=== PATIENT | male | born 1960 | race Caucasian/White ===

== ENCOUNTER → 2023-08-10 07:37 | Outpatient (REF) | payer OTHER, SELFPAY | LOC: MRI 3T 07:37 | PROVIDERS: ATTENDING PHYSICIAN Physician Assistant Surgical; FAMILY PHYSICIAN Physician Assistant Medical | DX: M54.16 Radiculopathy, lumbar region (principal); M54.50 Low back pain, unspecified | CPT/HCPCS: 72148 ==

== ENCOUNTER → 2024-06-11 08:37 | Outpatient (REF) | payer OTHER, SELFPAY | LOC: HWRAD 08:37 | PROVIDERS: ATTENDING PHYSICIAN Physician Assistant Medical | DX: Z87.891 Personal history of nicotine dependence (principal) | CPT/HCPCS: 71271 ==

== ENCOUNTER 2025-06-06 06:25 | Day surgery (SDC) | payer OTHER, SELFPAY ==
[2025-05-23 12:41] VITALS: BMI 26.9
== END 2025-06-06 23:59 | disposition home or self-care (01) ==
LOC: SDS 06:25
PROVIDERS: ATTENDING PHYSICIAN Surgery; FAMILY PHYSICIAN Physician Assistant Medical; OTHER PHYSICIAN Internal Medicine
DX: K40.20 Bilateral inguinal hernia, without obstruction or gangrene, not specified as recurrent (principal); Z53.9 Procedure and treatment not carried out, unspecified reason
CPT/HCPCS: 49650; 36415; 93005

== ENCOUNTER 2025-06-06 21:11 | Observation (INO) | payer OTHER, SELFPAY ==
[2025-06-06 09:58] VITALS: BP 111/62
--- NOTE | 2025-06-06 10:48 | ED.GENMED ---
History of Present Illness
<Rahul Peterson, DO - Last Filed: 06/06/25 14:10>
General
Chief Complaint: Abdominal Pain
Source: patient and spouse
Exam Limitations: none
Time Seen by Provider: 06/06/25 10:27
Nursing documentation reviewed up to this point in time: agreed with
History of Present Illness
History of Present Illness:
Note:
CHIEF COMPLAINT(S)
Intense pain not associated with the scheduled hernia surgery.
HISTORY OF PRESENT ILLNESS
The patient is a 65-year-old male with a history of an inguinal hernia for a year and a half, which was due for surgical repair today. The surgery was postponed due to issues with the air conditioning in the operating room. While waiting for
surgery, the patient began experiencing intense pain. The pains location is not associated with the hernia site and is notably different from any previous symptoms he had with the hernia. The patient describes the pain as 'intense' but not to the
point of screaming.
PAST MEDICAL AND SURGICAL HISTORY
The patient had surgery many years ago involving a section of the colon and diverticulitis.
ADDITIONAL HISTORY OBTAINED FROM SOURCES OTHER THAN THE PATIENT
The patients family member mentioned that they were waiting in the prep room for the surgery when the pain started.
PHYSICAL EXAM
General: Alert, no acute distress.
Skin: Warm, dry.
Head: Normocephalic, atraumatic.
Neck: Supple, trachea midline.
Eye Ears, nose, mouth and throat: Oral mucosa moist.
Cardiovascular: Normal peripheral perfusion, No edema.
Respiratory: Respirations are non-labored.
Gastrointestinal: Abdomen nondistended, tenderness noted but not significantly aggravated by palpation.
Back: Normal range of motion, Normal alignment.
Musculoskeletal: Normal range of motion, normal strength.
Neurological: Alert and oriented to person, place, time, and situation, No focal neurological deficit observed.
Psychiatric: Cooperative, appropriate mood & affect.
PROBLEM LIST
Acute: Intense, unexplained abdominal pain.
Chronic: Inguinal hernia.
PLAN
1. Postpone the hernia surgery until the current pain is evaluated and addressed.
2. Evaluate for potential kidney stones as a cause of abdominal pain.
3. Initiate a urinalysis by collecting a urine sample.
4. Place an intravenous line for potential medication administration and further diagnostics.
DIFFERENTIAL DIAGNOSIS
The differential diagnosis includes, in no particular order and is not limited to:
1. Renal colic/kidney stones
2. Abdominal aortic aneurysm
3. Appendicitis
4. Diverticulitis
5. Intestinal obstruction
6. Mesenteric ischemia
7. Gastroenteritis
8. Pancreatitis
9. Biliary colic
10. Gastroesophageal reflux disease
CARE-UPDATE
06/06/25 - 14:09
The patient has a left ureteral calculus measuring 0.5 centimeters in the proximal ureter. It is currently obstructing but there are no signs of infection. A consultation with Dr. Humphrey is planned to evaluate the need for surgical intervention
versus discharge.
Phy Exam
<Valdez Sandy MD - Last Filed: 06/07/25 13:20>
Physical Exam
Physical Exam:
*
Course
<Rahul Peterson DO - Last Filed: 06/06/25 14:10>
Orders/Labs/Results
Orders:
Orders
06/06/25 10:46
CT Abd/Pel (IV only)-DH only Urgent
Comment:
Reason For Exam: LLQ abd pain
IV Insert/Care/Rem.- Treatment PRN
0.9% Sodium Chloride 1000 ml [Nss] 1,000 ml IV BOLUS
Morphine Sulfate 4 mg IV NOW STA
Ondansetron Injectable [Zofran] 4 mg IV NOW STA
06/06/25 11:06
Complete Blood Count/With Diff Urgent
Comprehensive Metabolic Panel Urgent
06/06/25 11:37
Ketorolac [Toradol] 15 mg IV NOW STA
06/06/25 13:10
Urinalysis Reflex To Culture Urgent
Date Specimen was Collected: 06/06/25
Time Specimen was Collected: 13:00
Urine Microscopic Reflex Cult Urgent
06/06/25 13:29
Ketorolac [Toradol] 15 mg IV NOW STA
06/06/25 14:14
HYDROmorphone [Dilaudid] 1 mg .ROUTE .STK-MED ONE
06/06/25 14:15
HYDROmorphone [Dilaudid] 1 mg IV NOW STA
06/06/25 Dinner
2000 calorie (17 carb) Diabetic
At Your Request: Full Participation
06/06/25 16:03
Admit Patient As Directed
Co-Sign Provider:
Level of Care: Observation services
Assign to:: Medical/Surgical
Physician / Group: [facility]
Diagnosis: left ureteral stone
Expected length of stay greater than two midnights?: No
Other Reason for Overnight Stay: awaiting surgery
Code Status As Directed
Resuscitation Status: Full Code
Acetaminophen [Tylenol] 650 mg PO Q4HPRN PRN
Dextrose 50%-Water [Dextrose 50% Syringe] 12.5 grams IV [id number] PRN
Glucagon [GlucaGen] 1 mg IM PRN PRN
Morphine Sulfate 4 mg IV Q1HPRN PRN
Oxycodone/Acetaminophen [Percocet 5/325] 1 tablet PO Q4HPRN PRN
Oxycodone/Acetaminophen [Percocet 5/325] 2 tablet PO Q4HPRN PRN
Activity As Directed
Activity Level: As Tolerated
Bedside Glucose Monitoring As Directed
Frequency: AC&HS
Additional Instructions:: Change to q6h if pt on TPN, tube feeding or not eating
Intake/ Output As Directed
Frequency: Per unit guidelines
Okay to Shower As Directed
Vital Signs As Directed
Frequency: Per unit guidelines
06/06/25 16:04
DX Deep Vein Thrombosis Video Routine
06/06/25 16:05
PRN Pain Medication Management As Directed
May give lesser potent ordered pain med per pt: Yes
preference::
Protocol:: Medication orders for pain may be administered in a
manner that supports deferring to patient preference
when the pt is:
- Requesting an ordered lesser potent pain medication.
Least to most potent pain medications are defined
as: acetaminophen < NSAID < tramadol < opioids
(morphine, oxycodone, hydromorphone).
- Requesting a lesser dose of the same medication IF
ORDERED.
- Requesting a less intrusive route of administration
if both routes are prescribed by the provider (PO <
IV).
06/06/25 16:08
Ketorolac [Toradol] 15 mg IV Q6HPRN PRN
06/06/25 16:30
Insulin Aspart Corrective Low [Novolog Flexpen-Low Resistance] See Protocol SC AC
06/06/25 18:00
Aspirin Low Dose EC [Aspir Low (Enteric Coated)] 81 mg PO QPM
Atorvastatin [Lipitor] 80 mg PO QPM
06/06/25 20:00
Bupropion(12Hr)Sustain Release [WELLBUTRIN SR (12 hour sustained release)] 150 mg PO BID
METFORMIN HCl [Glucophage] 500 mg PO BID
06/06/25 22:00
Tamsulosin [Flomax] 0.4 mg PO HS
06/07/25 05:46
Basic Metabolic Panel IN AM
Complete Blood Count/No Diff IN AM
Glycohemoglobin (HgbA1c) IN AM
06/07/25 08:00
Lisinopril [Zestril] 5 mg PO DAILY
METFORMIN HCl [Glucophage] 500 mg PO BID@0800,1700
Sertraline HCl [Zoloft] 50 mg PO DAILY
06/07/25 10:00
CeFAZolin 2 GRAM [Ancef] 2 grams in 10 ml IV PRE PROCEDURE
Pneumatic Compression Sleeves As Directed
Type: Thigh high
Surgical Procedure As Directed
Surgical Procedure: left ureteroscopy
Abnormal Lab Results
06/06/25 06/06/25 06/06/25
11:06 13:10 16:44
WBC 15.9 H 10^3/uL
(4.8-10.8)
Abs Immat Gran (auto) 0.1 H 10^3/uL
(0-0.05)
Absolute Neuts (auto) 13.4 H 10^3/uL
(1.4-6.5)
Absolute Monos (auto) 1.0 H 10^3/uL
(0.1-0.6)
Neutrophils % 84.5 H %
(42.2-75.2)
Lymphocytes % 8.6 L %
(20.5-51.1)
Sodium 132 L mmol/L
(135-145)
Carbon Dioxide 20 L mmol/L
(22-30)
BUN 31 H mg/dl
(9-20)
Glucose 173 H mg/dl
(70-99)
Ur Occult Blood Reflex 4+ A
(Negative)
Urine RBC 26-30 A /HPF
(0-2)
Urine Bacteria (Reflex) Few A
(Negative)
Urine Glucose 3+ A
(Negative)
Urine Albumin (Reflex) 2+ A
(Neg - Trace)
POC Glucose 133 H mg/dl
(70-99)
06/06/25 11:06
06/06/25 11:06
Vital Signs
Initial and Last Documented VS:
Initial Vital Signs
Temp Pulse Resp BP Pulse Ox
97.6 F 55 18 111/62 100
06/06/25 09:58 06/06/25 09:58 06/06/25 09:58 06/06/25 09:58 06/06/25 09:58
Last Documented Vital Signs
Temp Pulse Resp BP Pulse Ox
97.8 F 76 16 112/80 98
06/07/25 12:45 06/07/25 12:45 06/07/25 12:45 06/07/25 12:45 06/07/25 12:45
<Valdez Sandy MD - Last Filed: 06/07/25 13:20>
Orders/Labs/Results
Orders:
Orders
06/06/25 10:46
CT Abd/Pel (IV only)-DH only Urgent
Comment:
Reason For Exam: LLQ abd pain
IV Insert/Care/Rem.- Treatment PRN
0.9% Sodium Chloride 1000 ml [Nss] 1,000 ml IV BOLUS
Morphine Sulfate 4 mg IV NOW STA
Ondansetron Injectable [Zofran] 4 mg IV NOW STA
06/06/25 11:06
Complete Blood Count/With Diff Urgent
Comprehensive Metabolic Panel Urgent
06/06/25 11:37
Ketorolac [Toradol] 15 mg IV NOW STA
06/06/25 13:10
Urinalysis Reflex To Culture Urgent
Date Specimen was Collected: 06/06/25
Time Specimen was Collected: 13:00
Urine Microscopic Reflex Cult Urgent
06/06/25 13:29
Ketorolac [Toradol] 15 mg IV NOW STA
06/06/25 14:14
HYDROmorphone [Dilaudid] 1 mg .ROUTE .STK-MED ONE
06/06/25 14:15
HYDROmorphone [Dilaudid] 1 mg IV NOW STA
06/06/25 Dinner
2000 calorie (17 carb) Diabetic
At Your Request: Full Participation
06/06/25 16:03
Admit Patient As Directed
Co-Sign Provider:
Level of Care: Observation services
Assign to:: Medical/Surgical
[facility]
Diagnosis: left ureteral stone
Expected length of stay greater than two midnights?: No
Other Reason for Overnight Stay: awaiting surgery
Code Status As Directed
Resuscitation Status: Full Code
Acetaminophen [Tylenol] 650 mg PO Q4HPRN PRN
Dextrose 50%-Water [Dextrose 50% Syringe] 12.5 grams IV [id number] PRN
Glucagon [GlucaGen] 1 mg IM PRN PRN
Morphine Sulfate 4 mg IV Q1HPRN PRN
Oxycodone/Acetaminophen [Percocet 5/325] 1 tablet PO Q4HPRN PRN
Oxycodone/Acetaminophen [Percocet 5/325] 2 tablet PO Q4HPRN PRN
Activity As Directed
Activity Level: As Tolerated
Bedside Glucose Monitoring As Directed
Frequency: AC&HS
Additional Instructions:: Change to q6h if pt on TPN, tube feeding or not eating
Intake/ Output As Directed
Frequency: Per unit guidelines
Okay to Shower As Directed
Vital Signs As Directed
Frequency: Per unit guidelines
06/06/25 16:04
DX Deep Vein Thrombosis Video Routine
06/06/25 16:05
PRN Pain Medication Management As Directed
May give lesser potent ordered pain med per pt: Yes
preference::
Protocol:: Medication orders for pain may be administered in a
manner that supports deferring to patient preference
when the pt is:
- Requesting an ordered lesser potent pain medication.
Least to most potent pain medications are defined
as: acetaminophen < NSAID < tramadol < opioids
(morphine, oxycodone, hydromorphone).
- Requesting a lesser dose of the same medication IF
ORDERED.
- Requesting a less intrusive route of administration
if both routes are prescribed by the provider (PO <
IV).
06/06/25 16:08
Ketorolac [Toradol] 15 mg IV Q6HPRN PRN
06/06/25 16:30
Insulin Aspart Corrective Low [Novolog Flexpen-Low Resistance] See Protocol SC AC
06/06/25 18:00
Aspirin Low Dose EC [Aspir Low (Enteric Coated)] 81 mg PO QPM
Atorvastatin [Lipitor] 80 mg PO QPM
06/06/25 20:00
Bupropion(12Hr)Sustain Release [WELLBUTRIN SR (12 hour sustained release)] 150 mg PO BID
METFORMIN HCl [Glucophage] 500 mg PO BID
06/06/25 22:00
Tamsulosin [Flomax] 0.4 mg PO HS
06/07/25 05:46
Basic Metabolic Panel IN AM
Complete Blood Count/No Diff IN AM
Glycohemoglobin (HgbA1c) IN AM
06/07/25 08:00
Lisinopril [Zestril] 5 mg PO DAILY
METFORMIN HCl [Glucophage] 500 mg PO BID@0800,1700
Sertraline HCl [Zoloft] 50 mg PO DAILY
06/07/25 10:00
CeFAZolin 2 GRAM [Ancef] 2 grams in 10 ml IV PRE PROCEDURE
Pneumatic Compression Sleeves As Directed
Type: Thigh high
Surgical Procedure As Directed
Surgical Procedure: left ureteroscopy
Abnormal Lab Results
06/06/25 06/06/25 06/06/25
11:06 13:10 16:44
WBC 15.9 H 10^3/uL
(4.8-10.8)
Abs Immat Gran (auto) 0.1 H 10^3/uL
(0-0.05)
Absolute Neuts (auto) 13.4 H 10^3/uL
(1.4-6.5)
Absolute Monos (auto) 1.0 H 10^3/uL
(0.1-0.6)
Neutrophils % 84.5 H %
(42.2-75.2)
Lymphocytes % 8.6 L %
(20.5-51.1)
Sodium 132 L mmol/L
(135-145)
Carbon Dioxide 20 L mmol/L
(22-30)
BUN 31 H mg/dl
(9-20)
Glucose 173 H mg/dl
(70-99)
Ur Occult Blood Reflex 4+ A
(Negative)
Urine RBC 26-30 A /HPF
(0-2)
Urine Bacteria (Reflex) Few A
(Negative)
Urine Glucose 3+ A
(Negative)
Urine Albumin (Reflex) 2+ A
(Neg - Trace)
POC Glucose 133 H mg/dl
(70-99)
06/06/25 11:06
06/06/25 11:06
Vital Signs
Initial and Last Documented VS:
Initial Vital Signs
Temp Pulse Resp BP Pulse Ox
97.6 F 55 18 111/62 100
06/06/25 09:58 06/06/25 09:58 06/06/25 09:58 06/06/25 09:58 06/06/25 09:58
Last Documented Vital Signs
Temp Pulse Resp BP Pulse Ox
97.8 F 76 16 112/80 98
06/07/25 12:45 06/07/25 12:45 06/07/25 12:45 06/07/25 12:45 06/07/25 12:45
<Rahul Peterson DO - Last Filed: 06/06/25 14:10>
*Pulse Oximetry
SaO2: 100
Oxygen Mode of Delivery: Room air
<Valdez Sandy MD - Last Filed: 06/07/25 13:20>
*Pulse Oximetry
Patient hypoxic: no
*Critical Care Note
Total Time (30-74mins, 75-104mins- exclusive of procedures): Not Applicable
<Valdez Sandy MD - Last Filed: 06/07/25 13:20>
Update Note
Update Note:
Pt evaluated in ED by (urology) - will admit patient with tentative plan for OR tomorrow.
ED Attending Note
<Rahul Peterson DO - Last Filed: 06/06/25 14:10>
-
Portions of this chart may have been created with voice recognition software.� Occasional wrong word or��sound alike� substitutions may have occurred due to the inherent limitations of voice recognition software.
Discharge Plan
Departure
Patient Disposition: Admit
Date of Disposition: 06/06/25
Time of Disposition: 16:02
Admit to: Med/Surg
Presentation/result/management discussed w/ accepting MD/DO:
Discharge Problem:
Renal colic, Intractable pain
Interventions
Interventions:
*General Assessment Last Done: 06/06/25 09:58
*Neglect/Abuse Screening Last Done: 06/06/25 10:53
*ED COVID-19 Vaccine History Last Done: 06/06/25 22:00
*ED Influenza Vaccine History Last Done: 06/06/25 09:58
[facility] Fall Risk Assessment Tool Last Done: 06/06/25 10:53
*Risk Screen - Suicide (C-SSRS) Last Done: 06/06/25 09:58
*Nursing Disposition Last Done: 06/06/25 22:01
IW-Mxutqw-Klnfdpmjdw Assessment Last Done: 06/06/25 10:53
Discharge Date and Time
Discharge Date/Time: 06/06/25 22:01
[2025-06-06 10:53] VITALS: BMI 26.1
[2025-06-06] MEDS: NSS 1000 IV (11:02)
[2025-06-06] MEDS: MORPHINE SULFATE 4 MG IV (11:03)
[2025-06-06] MEDS: ZOFRAN 4 MG IV (11:03)
[2025-06-06 11:17] LABS: Hematocrit 45.3 % (39.0-52.0); Hemoglobin 15.1 g/dL (13.0-18.0); Mean Corp Hgb Conc. 33.3 g/dL (33.0-37.0); Mean Corpuscular Volume 85.6 fL (80.0-94.0); Nucleated Red Blood Cells % 0 % (-); Platelet Count 232 10^3/uL (130-400); Red Cell Dist. Width 13.4 % (11.5-14.5)
[2025-06-06 11:31] LABS: ALT (SGPT) 21 U/L (0-50); AST (SGOT) 25 U/L (17-59); Albumin 4.5 g/dl (3.5-5.0); Alkaline Phosphatase 78 U/L (38-126); Blood Urea Nitrogen 31 mg/dl (9-20); Calcium 9.5 mg/dl (8.4-10.2); Carbon Dioxide 20 mmol/L (22-30); Chloride 102 mmol/L (98-107); Estimated Creatinine Clearance 89 ml/min; Glucose 173 mg/dl (70-99); Potassium 4.9 mmol/L (3.5-5.1); Sodium 132 mmol/L (135-145); Total Protein 6.8 g/dl (6.3-8.2); eGFR > 60.00
[2025-06-06] MEDS: TORADOL 15 MG IV ×2 (11:40→13:36)
[2025-06-06 13:27] LABS: Urine Character Clear (Clear)
[2025-06-06 13:36] LABS: Urine Red Blood Cell 26-30 /HPF (0-2)
[2025-06-06] MEDS: DILAUDID 1 MG IV (14:15)
[2025-06-06 14:21] VITALS: BP 115/66
--- NOTE | 2025-06-06 14:47 | HP.FOC2 ---
Focused History & Physical
Chief Complaint
HPI:
Chief Complaint: Left Ureteral Stone[s]
HPI / Indication for Planned Procedure:
ED note: 'The patient is a 65-year-old male with a history of an inguinal hernia for a year and a half, which was due for surgical repair today. The surgery was postponed due to issues with the air conditioning in the operating room. While waiting
for surgery, the patient began experiencing intense pain. The pains location is not associated with the hernia site and is notably different from any previous symptoms he had with the hernia. The patient describes the pain as 'intense' but not to
the point of screaming.'
no prior stone hx
Relevant Past Medical History: Diabetes, Hypertension and Other (mood disorder)
Relevant Social History: Negative ()
Relevant Past Surgical History: Positive for (Diverticulitis --> partial colectomy)
Review of Systems
Review of Pertinent Systems: All Systems Negative
Medication
See Medication form for detailed medications: Yes
Medication List (including Herbals & OTC):
aspirin 81 mg tablet,delayed release 81 mg PO QPM 05/30/25
atorvastatin 80 mg tablet 80 mg PO QPM 05/30/25
bupropion HCl 150 mg tablet,12 hr sustained-release 150 mg PO BID 05/30/25
dapagliflozin propanediol 10 mg tablet (Farxiga) 10 mg PO DAILY 05/30/25
lisinopril 5 mg tablet 5 mg PO DAILY 05/30/25
metformin 500 mg tablet 500 mg PO BID 05/30/25
multivit,Ca,min-iron 8 mg-folic acid 200 mcg-lycopene 600 mcg tablet (Men's Daily Multivitamin) 1 tab PO DAILY 05/30/25
sertraline 50 mg tablet 50 mg PO DAILY 05/30/25
Medications Reviewed: Yes
Allergies and Reactions
Patient has Allergies: No
Noted Allergies and Reactions:
Allergy/AdvReac Type Severity Reaction Status Date / Time
No Known Allergies Allergy Verified 06/06/25 10:02
Pertinent Physical Exam
All Other Systems: Negative
Head/Neck: Normal
Lungs: Normal
Heart: Normal
Abdomen: Normal
Extremities: Normal
Neurological: Normal
Diagnosis / Assessment
Left Ureteral Stone -- per radiologist -- <5 mm, proximal
Plan / Procedure
left ureteroscopy 06/07/25
pt was also offered outpatient TOP
Anesthesia/Sedation to be done by Anesthesia Provider: Yes
[2025-06-06] MEDS: NOVOLOG FLEXPEN-LOW RESISTANCE SC (16:45)
[2025-06-06 16:46] LABS: Glucose - Point of Care 133 mg/dl (70-99)
[2025-06-06] MEDS: LIPITOR 80 MG PO (18:36)
[2025-06-06] MEDS: ASPIR LOW (ENTERIC COATED) 81 MG PO (18:36)
[2025-06-06 18:39] VITALS: BP 119/71
[2025-06-06] MEDS: WELLBUTRIN SR (12 hour sustained release) 150 MG PO (20:24)
[2025-06-06] MEDS: GLUCOPHAGE 500 MG PO (20:24)
[2025-06-06 22:10] VITALS: BP 101/61; BMI 27.0
[2025-06-06 22:13] LABS: Glucose - Point of Care 175 mg/dl (70-99)
[2025-06-06] MEDS: FLOMAX 0.4 MG PO (22:19)
--- NOTE | 2025-06-06 22:54 | PTCARENOTE ---
Pt arrived to [facility] @ 2200. Pt AAOx3, VSS. Ambulated to bed w/o issue. Admission assessment completed. Reviewed plan of care with pt and answered all questions. Pt oriented to room, call booker within reach, bed locked and in lowest position. Care
ongoing.
[2025-06-07] VITALS (10 sets, daily range): BP systolic 105–120; BP diastolic 53–80
[2025-06-07 06:27] LABS: Hematocrit 42.5 % (39.0-52.0); Hemoglobin 14.3 g/dL (13.0-18.0); Mean Corp Hgb Conc. 33.6 g/dL (33.0-37.0); Mean Corpuscular Volume 88.4 fL (80.0-94.0); Platelet Count 205 10^3/uL (130-400); Red Cell Dist. Width 13.5 % (11.5-14.5)
[2025-06-07 06:46] LABS: Blood Urea Nitrogen 25 mg/dl (9-20); Calcium 9.0 mg/dl (8.4-10.2); Carbon Dioxide 24 mmol/L (22-30); Chloride 106 mmol/L (98-107); Estimated Creatinine Clearance 101 ml/min; Glucose 133 mg/dl (70-99); Sodium 136 mmol/L (135-145); eGFR > 60.00
[2025-06-07 06:52] LABS: Glucose - Point of Care 131 mg/dl (70-99)
[2025-06-07 06:57] LABS: Potassium 4.6 mmol/L (3.5-5.1)
[2025-06-07] MEDS: NOVOLOG FLEXPEN-LOW RESISTANCE SC ×2 (08:05→12:00)
[2025-06-07] MEDS: WELLBUTRIN SR (12 hour sustained release) 150 MG PO (08:20)
[2025-06-07] MEDS: ZOLOFT 50 MG PO (08:20)
[2025-06-07] MEDS: ZESTRIL 5 MG PO (08:21)
[2025-06-07] MEDS: GLUCOPHAGE 500 MG PO ×2 (08:24→17:12)
[2025-06-07 08:51] LABS: Glycohemoglobin (HgbA1c) 6.5 % (4.0-5.9)
--- NOTE | 2025-06-07 11:40 | W.IMMPOSTOP ---
Surgical Immed Post Op Note
-
Primary Surgeon:
maria antonia
Assisting Surgeon:
Pre-op Diagnosis:
left ureteral stone
Post-op Diagnosis:
same
Procedure Performed:
left retrograde/ureteroscopy/laser lith and stent
Anesthesia Type:
gen
Specimen / Cultures:
stone
Estimated Blood Loss:
2cc
Complications:
none
Operative Findings:
uncomplicated left ureteroscopy and stone treatment
discharge later today if stable
[2025-06-07 11:47] LABS: Glucose - Point of Care 158 mg/dl (70-99)
[2025-06-07 12:57] LABS: Glucose - Point of Care 151 mg/dl (70-99)
--- NOTE | 2025-06-07 13:30 | PTCARENOTE ---
Pt returned from PACU in bed. VSS. Pt instructed on diet and to ring for assistance with ambulation, verbalized understanding. Bed locked and in the lowest position, safety maintained.
[2025-06-07] MEDS: NOVOLOG FLEXPEN-LOW RESISTANCE 1 UNITS SC ×2 (13:41→17:12)
--- NOTE | 2025-06-07 15:02 | CM ---
Met with patient at bedside
Observation notice explained; form signed @ [id number]
Pharmacy verified: [facility] @ [id number], [place]
Lives w/; multilevel home; half bath 1st floor; 2nd floor bath as tub w/shower
PLOF: reported he was independent with ambulation, stairs, and ADLs; works night time babysitter; drives
DME: [employer]
will transport home
NO SNF or Home Health utilization history
Plan: Discharge to home later today; no services needed
[2025-06-07 16:48] LABS: Glucose - Point of Care 174 mg/dl (70-99)
[2025-06-07] MEDS: ASPIR LOW (ENTERIC COATED) 81 MG PO (17:12)
[2025-06-07] MEDS: LIPITOR 80 MG PO (17:12)
[2025-06-11 22:17] LABS: Stone Analysis Mass 40 mg
== END 2025-06-07 17:54 | disposition home or self-care (01) ==
LOC: 2 SOUTH 21:11
PROVIDERS: Specialist; ADMITTING PHYSICIAN Specialist; EMERGENCY PHYSICIAN Emergency Medicine; FAMILY PHYSICIAN Physician Assistant Medical
DX: N20.1 Calculus of ureter (principal); K40.90 Unilateral inguinal hernia, without obstruction or gangrene, not specified as recurrent; E11.9 Type 2 diabetes mellitus without complications; I10 Essential (primary) hypertension; F39 Unspecified mood [affective] disorder; Z79.82 Long term (current) use of aspirin; Z79.84 Long term (current) use of oral hypoglycemic drugs
CPT/HCPCS: 52356; 74177; 74420; 76000; 80048; 80053; 81003; 81015; 82365; 82962; 83036; 85025; 85027; 96361; 96374; 96375; 96376; 99285; C1758; C1894; C2617; G0378; Q9967